=== PATIENT | female | born 1930 | race Caucasian/White ===

== ENCOUNTER 2017-02-25 05:14 | Inpatient (IN) | payer MEDICARE, OTHER ==
--- NOTE | ~2017-02-25 | CN ---
Consultation Report [facility] [address] [facility] [place]. [address] NAME: CON RODRIGUEZ : [birth year] STATUS : ADM IN [facility]#: [id number] AGE: 86 ADM/REG DATE : 02/25/17 MR#: [id number] REPORT SERV DATE: 02/27/17 DICTATED BY: RANDY DE DATE: 02/26/17 REPORT STATUS : Draft TRANSCRIBED BY: MODL DATE: 02/26/17 DATE OF CONSULTATION: REASON FOR CONSULTATION: Right flank pain. HISTORY OF PRESENT ILLNESS: Mrs. Rodriguez is an 86-year-old female, who had acute onset right flank pain that woke her from her sleep 36 hours ago. She has had stones before. She has had nausea and vomiting. No hematuria. She presented to the emergency room and was evaluated. A CT scan was performed showing an obstructing right upper ureteral stone. She is admitted for pain control. She does have sick sinus syndrome and has been followed by Dr. Dunne. PAST MEDICAL HISTORY: Cholecystectomy, subdural hematoma, osteoarthritis, ischemia cardiomyopathy, bradycardia. MEDICATIONS: Vitamin D, diclofenac, Lasix, Elmore, lisinopril, Prilosec, K-Dur, Pravachol, [place] Thyroid, Coumadin that has been held. ALLERGIES: NO KNOWN DRUG ALLERGIES. SOCIAL HISTORY: Lives with her daughter. No dementia. No alcohol, tobacco, or illicit drug use. FAMILY HISTORY: Coronary artery disease. REVIEW OF SYSTEMS: Positive for weakness, nausea, vomiting, and right-sided abdominal pain. She is still hurting and requiring morphine. PHYSICAL EXAMINATION: VITAL SIGNS: Temperature 98.2, pulse 92, respirations 18, blood pressure 143/66, pleasant, somnolent. GENERAL: An 86-year-old, in no acute distress. HEENT: Sclerae anicteric. LUNGS: Clear. HEART: Regular rate and rhythm. CHEST: Clear anteriorly. ABDOMEN: Soft, protuberant. No palpable mass. Mild to moderate right CVA tenderness. No rebound or guarding. BLADDER: Not distended. NEURO: She is sleepy during this interview, but was apparently normally oriented without any dementia or confusion. LABORATORY DATA: Creatinine 1.79. Urinalysis was positive for rare bacteria, but negative for blood, nitrites, or leukocytes. Trace ketones are present. Consultation Report [facility] [address] [place]. [address] NAME: CON RODRIGUEZ : [birth year] STATUS : ADM IN [facility]#: [id number] AGE: 86 ADM/REG DATE : 02/25/17 MR#: [id number] REPORT SERV DATE: 02/27/17 DICTATED BY: RANDY DE DATE: 02/26/17 REPORT STATUS : Draft TRANSCRIBED BY: MODL DATE: 02/26/17 IMAGING: CT of the abdomen from 03/27/2017 shows a 3-4 mm right proximal ureteral stone with hydronephrosis. No other stones visualized. No other acute intraabdominal process. IMPRESSION: Right ureteral stone, symptomatic with pain, nausea, and vomiting. PLAN: I discussed shockwave lithotripsy, ureteroscopy, and trial of passage. She has been on Coumadin, as such is not a candidate for shockwave lithotripsy. She is still symptomatic with pain. I have recommended proceeding with ureteroscopy. Risks of bleeding, infection, and pain for postoperative ureteral stent were discussed. She and her daughter agreed to proceed on 02/27/2017. [facility]/PIPPA Randy De M.D. / [id number] CC: MD Gabriel Otero M.D.
--- NOTE | ~2017-02-25 | HP ---
History And Physical [place] [id number] [place]. [address] NAME: CON RODRIGUEZ : [birth year] STATUS : ADM IN [facility]#: [id number] AGE: 86 ADM/REG DATE : 02/25/17 MR#: [id number] REPORT SERV DATE: 02/25/17 DICTATED BY: DANIA GARCIA DATE: 02/25/17 REPORT STATUS : Draft TRANSCRIBED BY: MODL DATE: 02/25/17 DATE OF ADMISSION: 02/25/2017 ATTENDING PHYSICIAN: Dr. Castano. EXAMINING PHYSICIAN: Dania Garcia M.D. REASON FOR ADMISSION: Right renal stone with abdominal pain. HISTORY OF PRESENT ILLNESS: This is an 86-year-old white female with chronic pain from osteoarthritis followed by Dr. Latonia Casarez. She is on hydrocodone usually at home. She began with abdominal pain in the mid right abdomen to the right, now radiating to the flank since about 2 a.m. She has had some nausea without vomiting. She has had no hematuria, has not collected a urine specimen. She does have restriction on her fluid because her ankles swell. She does have ischemic cardiomyopathy. She was seen previously by Cardiology because she had bradycardia. Bradycardia was associated with pain now with sinus rhythm, occasional PACs with a rate up to 88. She has had a history of deep venous thrombosis. She is on Coumadin at home for this. She has had no hematuria that she knows of. PAST MEDICAL HISTORY: She had a craniotomy because she tore some arteries in her brain on a fall and it sounds like she may have had a subdural hematoma, hospitalized at [place] two years ago. She developed deep venous thrombosis in rehabilitation. After that, had another episode of deep venous thrombosis since that time, has not had inferior vena cava filter in as well as the Coumadin. She is followed by Dr. Gabriel Granger. She has been off her pacemaker in the past because of sick sinus syndrome. She has successfully avoided pacemaker though she is followed by Dr. Louie Dunne. In 1979, she had a laparotomy and part of her liver was removed but she cannot recall if the gallbladder came out or not. MEDICATIONS: Her home medications include the following medications: 1. Vitamin D 3000 units p.o. daily. 2. Cyanocobalamin 1000 mcg sublingually daily. 3. Diclofenac gel 1% 4 times a day p.r.n. for knees. 4. Fluticasone nasal spray each nostril daily. 5. Lasix 20 mg p.o. daily. 6. [place] 5 mg p.o. twice a day scheduled. 7. Lisinopril 5 mg at bedtime. 8. Singulair 1 p.o. daily. 9. [place]-3 fatty acids 1000 mg tablet twice a day. 10.Prilosec 20 mg p.o. b.i.d. 11.K-Dur 20 p.o. b.i.d. 12.Pravachol 20 mg at bedtime. 13.[place] Thyroid 30 mg b.i.d. 14.Magnesium gluconate p.r.n. constipation. 15.Lucentis one dose every 90 days. History And Physical [address] [address] NAME: CON RODRIGUEZ : [birth year] STATUS : ADM IN [facility]#: [id number] AGE: 86 ADM/REG DATE : 02/25/17 MR#: [id number] REPORT SERV DATE: 02/25/17 DICTATED BY: DANIA GARCIA DATE: 02/25/17 REPORT STATUS : Draft TRANSCRIBED BY: PIPPA DATE: 02/25/17 16.Jeaneth cream to buttocks as needed. 17.Warfarin 3 mg q.48 hours alternating with 4.5 q.48 hours. 18.Vitamin C, E, zinc, copper, lutein and Zeaxan capsules one a day. ALLERGIES: ADVERSE REACTIONS OF NONSTEROIDAL ANTI-INFLAMMATORY AGENTS BECAUSE OF PEPTIC ULCER DISEASE IN THE PAST. SHE HAS HAD PEPTIC ULCER DISEASE AND GASTROINTESTINAL PROBLEMS PREVIOUSLY. SOCIAL HISTORY: She grew up in [place], [place], moved here. Lives with her daughter. Does not smoke or drink. She attends the [employer]. Dr. Granger is her family physician. She was last here in 2012. She had an NV in the past, hypertension, reflux/esophagitis, and hypothyroidism. FAMILY HISTORY: There is some heart disease, blood pressure, and longevity runs in the family. REVIEW OF SYSTEMS: Abdominal pain mostly. Constipation always. No chest pain, shortness of breath, fever, chills, night sweats, unilateral weakness, melena, hematemesis, nausea, vomiting, or diarrhea. No known hematuria. No hemoptysis, unilateral weakness, fits, seizures, convulsions, melena, or hematemesis now. The remainder of the review of systems is negative. PHYSICAL EXAMINATION: GENERAL: Elderly white female, in no acute distress. Eyes sunken. Tongue dry. VITAL SIGNS: Blood pressure 140/70 with a heart rate of 88, respiratory rate of 16, afebrile. HEENT: EOMI. Sclerae clear. Conjunctivae pink. The tongue is dry. Pharynx clear. NECK: No bruit without any JVD. CHEST: Clear to A and P. HEART: Regular S1, S2 without murmur, gallop, or click. Occasional PAC. ABDOMEN: Soft, tender right side. Bowel sounds positive. EXTREMITIES: Have 3+ edema. Stasis changes. She has distal pulses palpable at the dorsalis pedis bilaterally. MUSCULOSKELETAL: Knee joints are hypertrophic bilaterally. She has Heberden's and Laura nodes. Interosseous muscle wasting. Her circular sawyer stone is equal and symmetric bilaterally. Coordination appears to be intact. She has no tremor. She appears to be somewhat suppressed mentally and has gotten Dilaudid 0.5 mg IV though she does not recall this. Her speech is cogent and goal directed. History is obtained from she and her daughter. LABORATORY DATA: CT scan of the abdomen shows evidence of a 2-to-3 mm stone on the right side with some hydronephrosis. Her glucose was 114, sodium 143, potassium 3.9, creatinine 1.09, albumin 3.4, and lipase 236. Liver tests were normal. White count 10,800, hemoglobin 14.5, hematocrit 42.9, and platelet count is 185,000. History And Physical [address] [place]. [address] NAME: CON RODRIGUEZ : [birth year] STATUS : ADM IN [facility]#: [id number] AGE: 86 ADM/REG DATE : 02/25/17 MR#: [id number] REPORT SERV DATE: 02/25/17 DICTATED BY: DANIA GARCIA DATE: 02/25/17 REPORT STATUS : Draft TRANSCRIBED BY: PIPPA DATE: 02/25/17 ASSESSMENT: 1. Right renal stone with hydronephrosis 2-to-3 mm, symptoms of movement of the pain likely this is moving. 2. Bradycardia noted on rhythm strip with pain though monitor measuring factitious bradycardia with only measuring half the rate because of low amplitude on the monitor. 3. Ischemic cardiomyopathy. Dr. Irizarry has already seen. 4. Coagulopathy on warfarin. 5. Nausea and vomiting. 6. Chronic pain, low back pain and knee pain, on chronic Dilaudid. 7. History of small-bowel obstruction. Hospitalized at [facility] in the past. 8. History of peptic ulcer disease. 9. History of pneumonia hospitalized here remotely. 10.History of Clostridium difficile colitis while she was at [facility] and she has had thorough rehabilitation twice. 11.Atrial fibrillation alternating with sinus rhythm with sinus bradycardia, likely sick sinus syndrome. She has been off her pacemaker in the past, but appears to be recovering from the bradycardia after the pain has been relieved. PLAN: We are going to admit the patient to the hospital. She may have passed a stone before night and could be discharged; however, she has been by Cardiology and has had the following ordered: Echocardiogram today. EP studies. TSH and free T4. PLAN: Gentle IV fluid hydration with the Lasix give it twice a day. Try to increase urine flow and see if this aids in the passage of the renal stone. DB/MODL Dania Garcia M.D. / [id number] CC: MD Gabriel Otero M.D. William Warren, M.D. Sigrid Watkins M.D. Latonia Casarez M.D.
--- NOTE | ~2017-02-25 | IDS ---
Interim Discharge Summary [facility] [address] [place]. [address] NAME: CON RODRIGUEZ : [birth year] STATUS : ADM IN [facility]#: [id number] AGE: 86 ADM/REG DATE : 02/25/17 MR#: [id number] REPORT SERV DATE: 03/10/17 DICTATED BY: JEISON AGUILAR DATE: 03/10/17 REPORT STATUS : Draft TRANSCRIBED BY: MODL DATE: 03/10/17 ADMISSION DATE: 02/25/2017 DISCHARGE DATE: Date of service provided from 03/04/2017 to 03/10/2017. Please refer to the previous discharge summary dictated by Dr. Castano on 03/03/2017. Please also refer to the history of present illness dictated by Dr. Mayorga on 02/25/2017. Physicians who saw the patient during this hospitalization, Dr. Mayorga, Dr. Castano, and nv. CONSULTANTS ON THE CASE: 1. Urologist, Dr. Casarez. 2. Dredge Lever Operator, Dr. Almanzar and Dr. Irizarry. CURRENT MEDICAL PROBLEMS: Right-sided perinephric abscess/urinoma status post CT-guided drainage on 02/27/2017 status post pigtail catheter placement by radiologist, Dr. Westbrook. 1. Status post right ureteral stent placement status post stone extraction on 02/28/[address] Casarez. 2. Recent paroxysmal atrial fibrillation, now in sinus bradycardia, beta-tracy was discontinued by border guard by border guard, Dr. Irizarry. 3. History of ischemic cardiomyopathy with ejection fraction 40% compensated. 4. Persistent leukocytosis this week, improved after pigtail catheter placement and the right-sided perinephric abscess drainage. 5. Severe weakness. Continue physical therapy. 6. Coumadin anticoagulation restarted per Dr. Casarez's recommendation today. 7. Sinus bradycardia. Dredge Lever Operator signed off, they will decide if the patient needs pacemaker placement later. 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 Pre and postcontrast imaging was used for this examination. There is cardiomegaly. There is a large hiatal hernia. There is evidence for prior stomach surgery. Vena cava filter is also identified and appears in good position. For the week I saw the patient, the patient was progressively increasing leukocytosis and it was staying persistently high despite of being on intravenous Rocephin. This was very concerning to me. So, I reconsulted Dr. Casarez, urologist. There was a concern of perinephric abscess. So, Dr. Casarez did an imaging study on this patient. CT scan, see above, and it showed questionable perinephric abscess. The patient had a CT-guided drainage and pigtail catheter placement and it yielded purulent bloody fluid. Pigtail catheter is still in place and Dr. Casarez and my colleague Dr. Castano will follow up on drainage fluid cultures for further decision of antibiotic choice. Decision of antibiotic duration will be per urologist Dr. Casarez. She is still on antibiotic as well as anticoagulation is restarted per recommendation of Dr. Casarez. Also very important to mention that the patient's beta- tracy has been discontinued because she had bradycardia on the beta-tracy, so she should not be restarted on beta-tracy. She should only be on Cordarone 200 mg daily. She is Interim Discharge Summary [address] [address] NAME: CON RODRIGUEZ : [birth year] STATUS : ADM IN [facility]#: [id number] AGE: 86 ADM/REG DATE : 02/25/17 MR#: [id number] REPORT SERV DATE: 03/10/17 DICTATED BY: JEISON AGUILAR DATE: 03/10/17 REPORT STATUS : Draft TRANSCRIBED BY: MODL DATE: 03/10/17 currently also on aspirin 81 mg daily. She is on Rocephin 2 g IV q.24 hours, magnesium oxide 200 daily, Singulair 10 mg a day, Movantik 25 daily, Protonix 40 mg daily, Nystatin p.o. four times a day, Pravachol 20 mg daily. She is on thyroid replacement 30 twice a day. Family also was updated. The patient will need to have placement once the cultures are back and once Dr. Casarez and Dr. Castano will recommend. My partner Dr. Castano will see the patient starting tomorrow morning. He needs to follow up on abscess cultures from the pigtail catheter as well as the decision of antibiotic choice as well as no beta-blockers anymore. MG/MODL Jeison Aguilar M.D. / [id number] CC: Zhao Florence M.D. John C House, M.D.
--- NOTE | ~2017-02-25 | IDS ---
Interim Discharge Summary [facility] [address] [place]. [address] NAME: CON RODRIGUEZ : [birth year] STATUS : ADM IN [facility]#: [id number] AGE: 86 ADM/REG DATE : 02/25/17 MR#: [id number] REPORT SERV DATE: 03/04/17 DICTATED BY: NISH DEE DATE: 03/04/17 REPORT STATUS : Draft TRANSCRIBED BY: MODBreezy DATE: 03/04/17 ADMISSION DATE: 02/25/2017 DISCHARGE DATE: INTERIM DIAGNOSES: 1. Renal stone with hydronephrosis, pyelonephritis present on arrival. 2. Vasovagal bradycardia with questionable sick sinus. 3. Atrial fibrillation, prominent postop. 4. Ischemic cardiomyopathy present on arrival. 5. Intractable pain, currently resolved after stent. 6. Debility. 7. Leukocytosis. 8. Small bowel obstruction history secondary to narcotic history. PERTINENT LABS AND IMAGING: Proteus urine culture, cefuroxime sensitive, cefazolin resistant, Levaquin resistant, and Bactrim resistant. Brain without contrast, no evidence of acute pathology, prior left frontal craniotomy, cerebral volume loss. BNP 1026.7 on 02/25/[address] of [address] of the abdomen and pelvis, 2 x 3 mm stone proximal right ureter with moderate severity hydronephrosis. PROCEDURES PERFORMED: Cystoscopy with right retrograde pyelogram, right ureteroscopy with stone extraction, right ureteral stent placement. HOSPITAL COURSE: Please see H and P for complete details. HISTORY OF PRESENT ILLNESS: Briefly, Ms. Rodriguez is an 86-year-old female who presents with left quadrant pain. Additionally found to be in occasional sinus bradycardia, requiring Cardiology and EP evaluation though secondary to vasovagal symptoms from renal stone. The patient was conservatively initially tried for first 24 hours for stone passage and pain control. However, as it became more prevalent that the patient would not be able to pass stone, the patient was becoming more symptomatic. Urology was consulted and evaluated for stone extraction. Once the patient is optimized from Cardiology standpoint, the patient underwent stone extraction and pyelogram as above. Symptomatically also immediately feeling improvement with pain and discomfort; however, the patient did have resultant postprocedure AFib with history of cardiomyopathy. The patient has had history of bradycardia per EP studies with beta blockade and amiodarone was chosen. The patient has been on chronically warfarin and this was changed from amiodarone drip to p.o. with fair response. Currently, dispose pending resolution of leukocytosis and strength improvement. Chest x-ray has currently been ordered as the patient still has persistent leukocytosis and ordering of blood culture. The patient has had PT evaluation with recommendation for jail facility when medically ready. DDN/PIPPA Interim Discharge Summary [facility] [facility] [id number] [place]. [address] NAME: CON RODRIGUEZ : [birth year] STATUS : ADM IN [facility]#: [id number] AGE: 86 ADM/REG DATE : 02/25/17 MR#: [id number] REPORT SERV DATE: 03/04/17 DICTATED BY: NISH DEE DATE: 03/04/17 REPORT STATUS : Draft TRANSCRIBED BY: PIPPA DATE: 03/04/17 Nish Dee MD / [id number] CC: MD Gabriel Otero M.D.
--- NOTE | ~2017-02-25 | OP ---
Record Of Operation [facility] [address] [place]. [address] NAME: CON RODRIGUEZ : [birth year] STATUS : ADM IN [facility]#: [id number] AGE: 86 ADM/REG DATE : 02/25/17 MR#: [id number] REPORT SERV DATE: 02/28/17 DICTATED BY: RANDY DE DATE: 02/28/17 REPORT STATUS : Draft TRANSCRIBED BY: MODL DATE: 02/28/17 DATE OF PROCEDURE: 02/28/2017 PREOPERATIVE DIAGNOSIS: Right ureteral stone. POSTOPERATIVE DIAGNOSES: 1. Right ureteral stone. 2. Right pyonephrosis. ANESTHESIA: General. PROCEDURE PERFORMED: 1. Cystoscopy with right retrograde pyelogram. 2. Right ureteroscopy with stone extraction. 3. Right ureteral stent placement. INDICATION: Ms. Rodriguez is an 86-year-old, admitted three days ago through the emergency room with acute-onset intractable right renal colic. She has not had fever. There has been persistent pain, nausea, and vomiting. CT scan showed a 4 mm right UPJ stone. Urine was not infected. FINDINGS: Right pyonephrosis. The stone at the right UPJ was very soft and was fragmented and evacuated immediately with suction and irrigation through the ureteroscope. TECHNIQUE: Levaquin was preoperatively. Ms. Rodriguez was brought to the operating room. General anesthesia was administered. The introitus was prepped and draped in the lithotomy position in a sterile fashion. Rigid cystoscopy was performed. The urethra was normal. Bladder showed a grade 2-3 cystocele. There was sediment at the bladder base. Right ureter was cannulated. Retrograde pyelogram was performed. There was no hydroureter. There was a transition point with a larger than expected filling defect at the UPJ/renal pelvis. A wire was passed up to the kidney. The cystoscope was removed. I passed a 11.5-Estonian ureteral access sheath up to the right upper ureter. Flexible ureteroscope was advanced. The stone had been impacted at the UPJ on the CT. At this site, there was erythema, edema, and narrowing. Stone was not visualized here. In the renal pelvis, there was copious sediment-laden/purulent urine. I evacuated 20 mL of purulent urine and a culture was sent. I irrigated the renal pelvis until clear. This was approximately 100 mL of irrigation through the scope. At this point, no stone was visualized. I checked the irrigation basin and there were tiny fragments of stone within the irrigated fluid. I inspected the renal pelvis and all calices as well as the proximal, mid, and distal ureter. No other stone or stone fragments were seen. I repeated retrograde pyelogram. Hydronephrosis persisted, but the filling defect was gone. I placed a wire up to the kidney and a 28 cm 6-Estonian right ureter stent was placed. The dangling string was removed. Coil was confirmed fluoroscopically in the renal pelvis and cystoscopically in the bladder. The bladder was drained. The cystoscope was removed. Record Of Operation [place] [id number] [facility] [place]. [address] NAME: CON RODRIGUEZ : [birth year] STATUS : ADM IN [facility]#: [id number] AGE: 86 ADM/REG DATE : 02/25/17 MR#: [id number] REPORT SERV DATE: 02/28/17 DICTATED BY: RANDY DE DATE: 02/28/17 REPORT STATUS : Draft TRANSCRIBED BY: PIPPA DATE: 02/28/17 She will follow up. We will await culture results prior to discharging her from the hospital. I will keep her on Levaquin empirically pending culture results. Her stent can be removed in 14 days in the office. No KUB will be necessary prior to stent removal. [facility]/PIPPA Randy De M.D. / [id number] CC: MD Gabriel Otero M.D.
--- NOTE | ~2017-02-25 | DS ---
Discharge Summary [facility] [address] [place]. [address] NAME: CON RODRIGUEZ : [birth year] STATUS : DIS IN PAT#: [id number] AGE: 86 ADM/REG DATE : 02/25/17 MR#: [id number] REPORT SERV DATE: 03/13/17 DICTATED BY: NISH DEE DATE: 03/12/17 REPORT STATUS : Draft TRANSCRIBED BY: MODL DATE: 03/12/17 ADMISSION DATE: 02/25/2017 DISCHARGE DATE: 03/11/2017 DISCHARGE DIAGNOSES: 1. Renal stone with hydronephrosis, pyelonephritis present on arrival. 2. Vasovagal bradycardia on admission with questionable sick sinus, thought secondary to be vasovagal after EP and Cardiology review. 3. Atrial fibrillation, postop. 4. Ischemic cardiomyopathy, present on arrival. 5. Intractable pain, resolving after stent. 6. Debility. 7. Leukocytosis. 8. Small-bowel obstruction history secondary to narcotic use with close monitoring of bowel regimen while inpatient. 9. Severe weakness. 10.Deconditioning. 11.Anticoagulation. 12.Perinephric abscess. CONSULTATIONS: 1. Cardiology. 2. Urology, Dr. Casarez. 3. Electrophysiology, Dr. Almanzar. 4. Cardiology, Dr. Irizarry. 5. Interventional Radiology for CT-guided pigtail catheter, remained in place, to be reassessed in one week by Dr. Casarez in clinic. DIAGNOSTIC DATA: Final cultures at time of discharge: Negative. Prior urine cultures: Proteus mirabilis. HOSPITAL COURSE: Please see H and P for complete details. HISTORY OF PRESENT ILLNESS: Briefly, Ms. Rodriguez is a pleasant 86-year-old female with past medical history of ischemic cardiomyopathy who presented with intractable pain, noted to have vasovagal bradycardia in the 30s that resolved after pain control, noted to have renal stone, who has tried conservative therapy for the first 12 to 24 hours; however, was noted to have worsening of symptoms with CT noting for pyelonephritis. The patient was evaluated by surgery, required stent placement and extraction of stone. The patient did feel symptomatically much better after having removal of the stone, but was noted to be in atrial fibrillation postprocedure. Due to the patient's intolerance of beta blockers and CCBs per EP evaluation due to bradycardia history, the patient was started on amiodarone with good results. The patient did have persistent leukocytosis and further workup prompted repeat CT which also noted a perinephric abscess. The patient did have drain placement by CT guidance, completed Rocephin 2 g due to perinephritis. Repeat cultures were negative from site. The patient had improvement in leukocytosis and creatinine remained stable over Discharge Summary [facility] [address] [place] [place]. [address] NAME: CON RODRIGUEZ : [birth year] STATUS : DIS IN PAT#: [id number] AGE: 86 ADM/REG DATE : 02/25/17 MR#: [id number] REPORT SERV DATE: 03/13/17 DICTATED BY: NISH DEE DATE: 03/12/17 REPORT STATUS : Draft TRANSCRIBED BY: PIPPA DATE: 03/12/17 72 hours. The patient was notably debilitated from baseline after having acute events and was recommended Nursing Home Facility at discharge. DISCHARGE MEDICATIONS: Aspirin 81 mg one tab p.o. daily; Voltaren gel 1% application topical 4 times a day; amiodarone 200 mg one tab p.o. daily; Jeaneth to buttocks; vitamin B12, 1000 mcg p.o. every morning; vitamin D3, 1000 units p.o. daily; Flonase 2 sprays nasal; Mag oxide 200 mg one tablet p.o. daily; Singulair 10 mg one tab p.o. daily; nystatin oral suspension 5 mL p.o. liquid; fish oil 1000 mg p.o. b.i.d.; Protonix 40 mg one tab p.o. before supper; Prilosec 20 mg one tab p.o. b.i.d.; pravastatin 20 mg one tab p.o. at bedtime; Azo t.i.d.; [place] 30 mg one tab p.o. b.i.d.; warfarin 3 mg q.48 hours with alternation of 4.5 q.48 hours, follow up INR in three days; Tylenol as needed; Dulcolax; Colace for bowel constipation as needed; [place] 5/325 one tab p.o. q.4 to 6 hours as needed for breakthrough pain; Voltaren gel [id number] as needed; Mag citrate b.i.d. as needed; Zofran ODT as needed for nausea; Senokot 2 tablets at bedtime for constipation. Additionally, cefuroxime 500 mg one tab p.o. b.i.d. x7 additional days. Discharge planning, med reconciliation, education with the patient and family took greater than 30 minutes. DICTATED BY: MD GAB Otero/MODL Nish Dee MD / [id number]
--- NOTE | ~2017-02-25 | CN ---
Consultation Report [facility] [address] [place]. [address] NAME: CON RODRIGUEZ : [birth year] STATUS : ADM IN PAT#: [id number] AGE: 86 ADM/REG DATE : 02/25/17 MR#: [id number] REPORT SERV DATE: 02/25/17 DICTATED BY: UMER IRENE DATE: 02/25/17 REPORT STATUS : Draft TRANSCRIBED BY: MODBreezy DATE: 02/25/17 CONSULTATION DATE OF CONSULTATION: 02/25/2017 REASON FOR CONSULTATION: Possible pacemaker implantation. PRIMARY OPERATIONS TRAINER: Louie Dunne M.D. HISTORY OF PRESENT ILLNESS: Ms Rodriguez is a very pleasant 86-year-old female with a history of ischemic cardiomyopathy (LVEF of 40%, anteroapical hypocontractility), chronic DVT status post IVC filter and on Coumadin, coronary artery disease status post PCI of the LAD (2008), anteroapical NV, and history of resting bradycardia (asymptomatic), who presents to [facility] with symptoms of right upper quadrant abdominal pain that started at 0100 hours this morning. She states that she had been in her usual state of health about one week ago, and couple of days later had unsteadiness with ambulating. She did not have any tripping or provoking factors mechanically; however, felt quite unsteady while walking and ended up falling. Per her daughter and herself, she did not frankly lose consciousness. Her gait instability and unsteadiness, which is generally nonspecified, occurs on an infrequent basis, but she has had multiple falls over the past several months. She has been evaluated for pacemaker in the remote past approximately six years ago; however, at that time, she had not been falling at all. She otherwise denies having any tammi chest pains, pressures, fevers, chills, or palpitations. Her primary symptoms include abdominal discomfort on her right side as well as unsteadiness and nausea. ALLERGIES: NONE. FAMILY HISTORY: Noncontributory for premature cardiovascular disease. SOCIAL HISTORY: The patient lives at home with family (daughter). She functions generally independently with regard to ADLs. She does require assistance otherwise. She denies drinking alcohol, smoking, or doing drugs. REVIEW OF SYSTEMS: As above, all other systems otherwise negative. HOME MEDICATIONS: 1. Vitamin D. 2. Vitamin B12. 3. Voltaren. 4. Flonase. 5. Lasix. 6. [place]. 7. Lisinopril. 8. Singulair. Consultation Report [facility] [address] [place]. [address] NAME: CON RODRIGUEZ : [birth year] STATUS : ADM IN PAT#: [id number] AGE: 86 ADM/REG DATE : 02/25/17 MR#: [id number] REPORT SERV DATE: 02/25/17 DICTATED BY: UMER IRENE DATE: 02/25/17 REPORT STATUS : Draft TRANSCRIBED BY: PPIPA DATE: 02/25/17 9. Fish oil. 10.Prilosec. 11.Klor-Con. 12.Pravachol. 13.[place]. 14.Magnesium. 15.Coumadin. PHYSICAL EXAMINATION: VITAL SIGNS: BP 184/76; temperature 97, oxygen saturation 94%, and heart rate variable on the telemetry review from 80s down to 20s/30s. GENERAL: Age appropriate, conversant, well-developed, well-nourished. NEURO: Awake, alert and oriented x3; no focal deficits, appropriate mood. HEENT: Moist mucous membranes, anicteric sclerae, no nasal discharge. NECK: No JVD, no carotid bruit. LUNGS: Clear to auscultation bilaterally, no wheezes, rales or rhonchi. CARDIAC: Occasional irregularity; however, generally regular, normal S1, S2. No murmurs, rubs, or gallops. ABD: Soft, non-tender, non-distended, no rebound or guarding. EXT: No pitting edema, normal distal pulses. SKIN: Warm, dry and intact; no rash. PERTINENT TEST FINDINGS: Telemetry with sinus bradycardia down to the 20 on occasion, otherwise white blood cell count 10.8, hemoglobin 14.5. Creatinine 1.1. LFTs are normal. Glucose 114. EKG with sinus bradycardia with a rate of 44 beats per minute. Lateral and anterior T-wave inversions. IMPRESSION AND PLAN: Ms Meza is a pleasant 86-year-old female with history of coronary artery disease status post PCI, ischemic cardiomyopathy (EF of 40%), and chronic resting bradycardia that was previously asymptomatic, who now presents with symptoms of right upper quadrant abdominal discomfort, nausea, as well as marked sinus bradycardia/sick sinus syndrome with falls. Most recently, she fell about one week ago, this may very well has been related to her bradycardic episodes. Accordingly, I recommend evaluation by Electrophysiology for pacemaker implantation. Otherwise avoid maira blocking agents, including beta-blockers. She is compensated from ischemic cardiomyopathy perspective as well as from a coronary artery disease perspective, without any anginal equivalent or volume overload on my clinical exam. Finally, it will be helpful to check an echocardiogram to get a reassessment of her ejection fraction which was last 40% prior two years ago. VR/PIPPA Consultation Report [address] [place]. [address] NAME: CON RODRIGUEZ : [birth year] STATUS : ADM IN [facility]#: [id number] AGE: 86 ADM/REG DATE : 02/25/17 MR#: [id number] REPORT SERV DATE: 02/25/17 DICTATED BY: UMER IRENE DATE: 02/25/17 REPORT STATUS : Draft TRANSCRIBED BY: PIPPA DATE: 02/25/17 Umer Irene MD / [id number] CC: MD Gabriel Otero M.D.
--- NOTE | ~2017-02-25 | CN ---
Consultation Report [facility] [address] [place]. [address] NAME: CON RODRIGUEZ : [birth year] STATUS : ADM IN PAT#: [id number] AGE: 86 ADM/REG DATE : 02/25/17 MR#: [id number] REPORT SERV DATE: 02/25/17 DICTATED BY: DANIA ALMANZAR DATE: 02/25/17 REPORT STATUS : Draft TRANSCRIBED BY: MODL DATE: 02/25/17 EP CONSULTATION DATE OF CONSULTATION: INDICATION: Bradycardia. HISTORY: The patient is an 86-year-old white female, who is usually cared for by Dr. Dunne. She has a history of nonischemic cardiomyopathy with an EF of 40% and intermittent bradycardia. She does not use beta-blockers because of this tendency for bradycardia. She has a history of falls and unsteadiness, but no history of overt syncope. According to her daughter and son-in-law, she awakened them at 3 this morning with onset of right-sided flank pain. This had started a couple of hours earlier. She also had nausea and vomiting. She was taken to the emergency room. CT scan showed a 2 x 3 mm stone in the proximal right ureter with moderate hydronephrosis. During the course of evaluation in the emergency room, she was found to have periods of bradycardia with heart rates in the 30 beat per minute range and less. These were intermittent episodes. CURRENT HOME MEDICATIONS: Cholecalciferol 1000 per day, cyanocobalamin 1000 per day, diclofenac gel four times p.r.n., fluticasone nasal spray 50 b.i.d., furosemide 20 a day, hydrocodone/APAP 5/325 q.i.d. p.r.n., lisinopril 5 at bedtime, montelukast 10 per day, [place] 3 fatty acids daily, omeprazole 20 b.i.d., potassium 20 b.i.d., pravastatin 20 at bedtime, Thyroid [place] 30 b.i.d., magnesium gluconate one tablet daily, Lucentis ophthalmologic injection per Dr. Murillo and cream applied to buttocks, vitamin C, PreserVision AREDS two softgel capsules daily, warfarin as directed. ALLERGIES OR INTOLERANCE: NSAIDs (peptic ulcer disease). SOCIAL HISTORY: . Lives with daughter and son-in-law. Negative tobacco or alcohol use. FAMILY HISTORY: Negative for coronary artery disease at a young age. PAST MEDICAL HISTORY/REVIEW OF SYSTEMS: She has had previous DVTs and an IVC filter. She has a past intracranial hemorrhage following a fall requiring subdural evacuation by Neurosurgery. She has a history of anterior wall NE in 2008 ([place]). She has been evaluated for chest pain as recently as 2012 with an MPI scan. EF at that time was 35%. She has been on medical therapy since that time. She has a history of hyperlipidemia, hypothyroidism, osteoporosis, GERD, and osteoarthritis. She had a gastric ulcer in April 2013 associated with emesis. She also has a large hiatal hernia. PHYSICAL EXAMINATION: GENERAL: An 86-year-old white female, appears frail. Consultation Report [facility] [id number] [facility] [place]. [address] NAME: CON RODRIGUEZ : [birth year] STATUS : ADM IN [facility]#: [id number] AGE: 86 ADM/REG DATE : 02/25/17 MR#: [id number] REPORT SERV DATE: 02/25/17 DICTATED BY: DANIA ALMANZAR DATE: 02/25/17 REPORT STATUS : Draft TRANSCRIBED BY: PIPPA DATE: 02/25/17 VITAL SIGNS: Blood pressure presently on admission 184/76, pulse 70 and regular, respirations 20. SKIN: No xanthelasmas. HEENT: She is normocephalic. There is no pallor. Sclerae white. JVD is not elevated. CHEST: No crackles. CARDIAC: S1 normal, S2 physiologic. There are no gallops or murmurs. ABDOMEN: With some right upper quadrant tenderness. Bowel sounds are diminished. EXTREMITIES: Without edema. No clubbing. NEUROLOGIC: No focal deficits. LABORATORY DATA: BUN 25, creatinine 1.09. White count 10.8, hemoglobin 14.5. Baseline ECG shows sinus bradycardia, short left axis deviation, and lateral inverted T-waves and T-wave flattening. No acute repolarization changes present. IMPRESSION: Bradycardia, likely vagally mediated secondary to hydronephrosis and ureteral spasm. Before considering any pacing support, it would be ideal to allow her stone to pass and get a better sense of her function and rhythm in the nonacute setting. If she tends to have more bradycardia, atropine would be effective in decreasing the tendency for bradycardia, although this may cause other discomfort. No acute intervention required at present. FLOYD/PIPPA Dania Almanzar M.D. / [id number] CC: MD Gabriel Otero M.D. [facility]
[~2017-02-25 05:14] MED LIST: ANTIFUNGAL; ARMOUR THYRO30 MG PO; ASAB PO; ASTAXANTHIN OR; AT25 PO; ATEN25 PO; BISR PR; CALTRA600D PO; CLARIT10 PO; CO Q-10100 MG PO; COUMADIN3 MG; COUMADIN3 MG PO; DETROLLA4 PO; DSS PO; DYAZIDE1 CAP PO; ENDODAN PO; ESTER C OR; ESTER-C PO; FISH OIL300 MG PO; FISH-EPA1000 MG PO; FLONASE NAS; FORTEO SC; GLUCOSAMINE SULFATE OR; HYALURONIC ACID OR; KLOR-CON M2020 MEQ PO; KLOR-CON20 MEQ PO; LORTAB 5 PO; MAGNESIUM CITRATE; MAGNESIUM CITRATE OR; MAGOX4 PO; MAXZIDE PO; METANX PO; NAFTIN TOP; NASONEX INH; NASONEX NAS; NEXIUM40 PO; NITROSTAT0.4 MG SL; NORCO1 TA1 PO; PERIDEX PO; PRAVAC PO; PRILO PO; PROLIA60 MG/1 ML SC; PROTOPIC0.1 % EX; REST15 PO; SINGULAIR1 PO; SPIRULINA500 MG; SPIRULINA500 MG OR; STEROID CREAM; SUCR PO; SYNTHROID137 MCG PO; SYNTHROID300 MCG PO; UBIQUINOL OR; VANCOMYCIN; VICODINTAB PO; VITAMIN B-121000 MC1 SL; VITAMIN D31000 UNIT PO; VITAMIN K IM; ZOCOR40 PO; ZOFRAN4; [UNRECOGNIZED DRUG - OTHER]; [UNRECOGNIZED DRUG - OTHER]; [UNRECOGNIZED DRUG - OTHER] T
[2017-02-25 05:49] LABS: BASOPHILS 0.1 %; BASOPHILS ABSOLUTE 0.01 10/3/uL (0.0-0.16); EOSINOPHILS 0.9 %; HEMATOCRIT 42.9 % (36.0-48.0); HEMOGLOBIN 14.5 g/dL (12.0-16.0); IMMATURE GRANULOCYTES 0.3 %; IMMATURE GRANULOCYTES ABSOLUTE 0.03 10/3/uL (0.0-0.11); LYMPHOCYTES 9.5 %; LYMPHOCYTES ABSOLUTE 1.03 10/3/uL (0.67-4.30); MEAN CORPUS HGB CONC 33.8 g/dL (32.0-36.0); MEAN CORPUSCULAR HEMOGLOB 28.9 pg (26.0-34.0); MEAN CORPUSCULAR VOLUME 85.5 fL (80-100); MEAN PLATELET VOLUME 12.1 fL (9.2-13.0); MONOCYTES 6.7 %; MONOCYTES ABSOLUTE 0.73 10/3/uL (0.21-1.20); NEUTROPHILS 82.5 %; NEUTROPHILS ABSOLUTE 8.94 10/3/uL (2.02-8.40); PLATELET COUNT 185 10/3/uL (150-400); RBC DISTRIBUTION WIDTH 15.5 % (12.0-16.0); RED CELL COUNT 5.02 10/6/uL (4.0-5.6)
[2017-02-25 05:50] LABS: ER CBC TAT 0 Hrs 11 MinsNP; MANUAL DIFF NO %; WHITE BLOOD CELLS 10.8 10/3/uL (4.5-10.5)
[2017-02-25 06:04] LABS: A/G RATIO 0.9 (0.7-1.9); ALBUMIN 3.4 G/DL (3.5-5.0); BUN (BLOOD UREA NITROGEN) 25 MG/DL (6-23); CALCIUM, SERUM 9.2 MG/DL (8.5-10.4); CHLORIDE, SERUM 109 MMOL/L (96-112); CO2 (CARBON DIOXIDE) 26 MMOL/L (24-34); CREATININE 1.09 MG/DL (0.55-1.02); GFR AFRICAN AMERICAN 53 ML/MIN (>=60); GFR NON AFRICAN AMERICAN 46 ML/MIN (>=60); GLOBULIN 3.9 G/DL (2.5-4.1); GLUCOSE, SERUM 114 MG/DL (60-99); POTASSIUM, SERUM 3.9 MMOL/L (3.5-5.3); SGOT(AST) 18 U/L (5-40); SGPT(ALT) 17 U/L (5-65); SODIUM, SERUM 143 MMOL/L (135-148); TOTAL BILIRUBIN 0.5 MG/DL (0-1.2); TOTAL PROTEIN 7.3 G/DL (6.0-8.5)
[2017-02-25 06:05] LABS: ALKALINE PHOSPHATASE 68 U/L (45-117)
[2017-02-25] MEDS ORDERED: SINGULAIR1 PO (07:01)
[2017-02-25] MEDS ORDERED: MAXZIDE (07:01)
[2017-02-25] MEDS ORDERED: PRIN5 PO (07:01)
[2017-02-25] MEDS ORDERED: VITAMIN D31000 UNIT PO (07:02)
[2017-02-25] MEDS ORDERED: VITAMIN B-121000 MC1 PO (07:03)
[2017-02-25] MEDS ORDERED: MAGNESIUM GLUCONATE PO (07:04)
[2017-02-25] MEDS ORDERED: PRESERVISION A1 EAC1 PO (07:05)
[2017-02-25] MEDS ORDERED: MAG CITRATE (07:05)
[2017-02-25] MEDS ORDERED: MAGNESIUM CITRATE PO (07:22)
[2017-02-25] MEDS ORDERED: L20 PO (07:27)
[2017-02-25] MEDS ORDERED: COUMADIN3 MG PO ×2 (07:28→07:29)
[2017-02-25] MEDS ORDERED: FLONASE NAS (07:30)
[2017-02-25] MEDS ORDERED: VOLTAREN1 % TOP (07:32)
[2017-02-25] MEDS ORDERED: [UNRECOGNIZED DRUG - OTHER] OPH (07:34)
[2017-02-25] MEDS ORDERED: [UNRECOGNIZED DRUG - OTHER] TOP (07:36)
[2017-02-25 09:40] LABS: INTERNATIONAL NORMAL RATI 1.4 UNITS (-)
[2017-02-25 09:41] LABS: PROTIME (NOT ORD) 17.1 SEC (12.0-14.5)
[2017-02-25 09:55] LABS: ASCORBIC ACID (UR NOT ORDER) NEG (NEG); BILIRUBIN, URINE NEGATIVE (NEG); ER URINALYSIS TAT 0 Hrs 08 Mins; KETONE, URINE TRACE MG/DL (NEG); LEUKOCYTE ESTERASE(NOT OR NEG (NEG); NITRITE (URINE) NEG (NEG); WBC (NOT ORDERED) (RFLEX) 2 (0-5)
[2017-02-25 18:03] LABS: TROPONIN I 0.08 NG/ML (<0.05)
[2017-02-25 20:41] LABS: BUN (BLOOD UREA NITROGEN) 25 MG/DL (6-23); CALCIUM, SERUM 8.6 MG/DL (8.5-10.4); GFR AFRICAN AMERICAN 36 ML/MIN (>=60); GFR NON AFRICAN AMERICAN 31 ML/MIN (>=60)
[2017-02-25 20:44] LABS: CO2 (CARBON DIOXIDE) 21 MMOL/L (24-34); GLUCOSE, SERUM 205 MG/DL (60-99)
[2017-02-25 20:46] LABS: CHLORIDE, SERUM 107 MMOL/L (96-112); POTASSIUM, SERUM 3.5 MMOL/L (3.5-5.3)
[2017-02-25 20:47] LABS: SODIUM, SERUM 134 MMOL/L (135-148)
[2017-02-26 06:02] LABS: INTERNATIONAL NORMAL RATI 1.6 UNITS (-); PROTIME (NOT ORD) 19.3 SEC (12.0-14.5)
[2017-02-26 06:12] LABS: CALCIUM, SERUM 8.3 MG/DL (8.5-10.4); CHLORIDE, SERUM 107 MMOL/L (96-112); CO2 (CARBON DIOXIDE) 23 MMOL/L (24-34); CREATININE 1.79 MG/DL (0.55-1.02); GFR AFRICAN AMERICAN 29 ML/MIN (>=60); GFR NON AFRICAN AMERICAN 25 ML/MIN (>=60); POTASSIUM, SERUM 3.9 MMOL/L (3.5-5.3); SODIUM, SERUM 140 MMOL/L (135-148)
[2017-02-26 06:14] LABS: BUN (BLOOD UREA NITROGEN) 32 MG/DL (6-23); GLUCOSE, SERUM 152 MG/DL (60-99)
[2017-02-27 06:12] LABS: BASOPHILS 0.1 %; BASOPHILS ABSOLUTE 0.01 10/3/uL (0.0-0.16); EOSINOPHILS 0 %; HEMATOCRIT 41.9 % (36.0-48.0); HEMOGLOBIN 14.2 g/dL (12.0-16.0); IMMATURE GRANULOCYTES 0.3 %; IMMATURE GRANULOCYTES ABSOLUTE 0.04 10/3/uL (0.0-0.11); LYMPHOCYTES 3.8 %; LYMPHOCYTES ABSOLUTE 0.46 10/3/uL (0.67-4.30); MEAN CORPUS HGB CONC 33.9 g/dL (32.0-36.0); MEAN CORPUSCULAR HEMOGLOB 28.5 pg (26.0-34.0); MEAN PLATELET VOLUME 11.8 fL (9.2-13.0); MONOCYTES 4.1 %; MONOCYTES ABSOLUTE 0.49 10/3/uL (0.21-1.20); NEUTROPHILS 91.7 %; NEUTROPHILS ABSOLUTE 11.03 10/3/uL (2.02-8.40); RBC DISTRIBUTION WIDTH 15.6 % (12.0-16.0); RED CELL COUNT 4.99 10/6/uL (4.0-5.6)
[2017-02-27 06:14] LABS: INTERNATIONAL NORMAL RATI 1.4 UNITS (-); MANUAL DIFF NO %; PLATELET COUNT 116 10/3/uL (150-400); PROTIME (NOT ORD) 17.2 SEC (12.0-14.5)
[2017-02-27 06:22] LABS: CALCIUM, SERUM 8.4 MG/DL (8.5-10.4); CHLORIDE, SERUM 110 MMOL/L (96-112); CO2 (CARBON DIOXIDE) 24 MMOL/L (24-34); CREATININE 1.49 MG/DL (0.55-1.02); GFR AFRICAN AMERICAN 36 ML/MIN (>=60); GFR NON AFRICAN AMERICAN 31 ML/MIN (>=60); GLUCOSE, SERUM 125 MG/DL (60-99); POTASSIUM, SERUM 4.5 MMOL/L (3.5-5.3); SODIUM, SERUM 141 MMOL/L (135-148)
[2017-02-27 06:23] LABS: BUN (BLOOD UREA NITROGEN) 36 MG/DL (6-23)
[2017-02-28 05:59] LABS: HEMATOCRIT 43.4 % (36.0-48.0); HEMOGLOBIN 14.9 g/dL (12.0-16.0); MEAN CORPUS HGB CONC 34.3 g/dL (32.0-36.0); MEAN CORPUSCULAR HEMOGLOB 29.1 pg (26.0-34.0); MEAN CORPUSCULAR VOLUME 84.8 fL (80-100); PLATELET COUNT 126 10/3/uL (150-400); RBC DISTRIBUTION WIDTH 15.7 % (12.0-16.0); RED CELL COUNT 5.12 10/6/uL (4.0-5.6); WHITE BLOOD CELLS 11.5 10/3/uL (4.5-10.5)
[2017-02-28 06:05] LABS: MANUAL DIFF YES %
[2017-02-28 07:11] LABS: BAND NEUTROPHILS 20 %; LYMPHOCYTES 7 %; LYMPHOCYTES ABSOLUTE (CALC) 0.81 10/3/uL (0.67-4.30); MONOCYTES 4 %; MONOCYTES ABSOLUTE (CALC) 0.46 10/3/uL (0.21-1.20); NEUTROPHILS ABSOLUTE (CALC) 10.24 10/3/uL (2.02-8.40); PLATELET ESTIMATE SLT DEC (ADEQUATE); SEGMENTED NEUTROPHIL (0) 69 %; TOTAL NUCLEATED CELLS 100
[2017-02-28 07:12] LABS: RBC MORPHOLOGY NORM (NORMAL)
[2017-02-28 13:34] LABS: CALCIUM, SERUM 8.5 MG/DL (8.5-10.4); CHLORIDE, SERUM 111 MMOL/L (96-112); CO2 (CARBON DIOXIDE) 25 MMOL/L (24-34); CREATININE 1.44 MG/DL (0.55-1.02); GFR AFRICAN AMERICAN 38 ML/MIN (>=60); GFR NON AFRICAN AMERICAN 33 ML/MIN (>=60); GLUCOSE, SERUM 150 MG/DL (60-99); POTASSIUM, SERUM 4.1 MMOL/L (3.5-5.3); SODIUM, SERUM 145 MMOL/L (135-148)
[2017-02-28 13:36] LABS: BUN (BLOOD UREA NITROGEN) 42 MG/DL (6-23)
[2017-03-01 07:21] LABS: BASOPHILS 0.2 %; BASOPHILS ABSOLUTE 0.03 10/3/uL (0.0-0.16); EOSINOPHILS 0 %; HEMOGLOBIN 12.4 g/dL (12.0-16.0); IMMATURE GRANULOCYTES ABSOLUTE 0.13 10/3/uL (0.0-0.11); LYMPHOCYTES 7.7 %; LYMPHOCYTES ABSOLUTE 0.99 10/3/uL (0.67-4.30); MEAN CORPUS HGB CONC 33.9 g/dL (32.0-36.0); MEAN CORPUSCULAR HEMOGLOB 27.8 pg (26.0-34.0); MEAN PLATELET VOLUME 11.5 fL (9.2-13.0); NEUTROPHILS 84.1 %; NEUTROPHILS ABSOLUTE 10.75 10/3/uL (2.02-8.40); PLATELET COUNT 97 10/3/uL (150-400); RBC DISTRIBUTION WIDTH 15.4 % (12.0-16.0); RED CELL COUNT 4.46 10/6/uL (4.0-5.6); WHITE BLOOD CELLS 12.8 10/3/uL (4.5-10.5)
[2017-03-01 07:24] LABS: HEMATOCRIT 36.6 % (36.0-48.0); MANUAL DIFF NO %; MEAN CORPUSCULAR VOLUME 82.1 fL (80-100)
[2017-03-01 07:29] LABS: INTERNATIONAL NORMAL RATI 1.5 UNITS (-); PROTIME (NOT ORD) 17.9 SEC (12.0-14.5)
[2017-03-01 07:33] LABS: BUN (BLOOD UREA NITROGEN) 39 MG/DL (6-23); CALCIUM, SERUM 8.5 MG/DL (8.5-10.4); CHLORIDE, SERUM 109 MMOL/L (96-112); CO2 (CARBON DIOXIDE) 27 MMOL/L (24-34); CREATININE 1.07 MG/DL (0.55-1.02); GFR AFRICAN AMERICAN 54 ML/MIN (>=60); GFR NON AFRICAN AMERICAN 47 ML/MIN (>=60); SODIUM, SERUM 143 MMOL/L (135-148)
[2017-03-01 07:34] LABS: GLUCOSE, SERUM 117 MG/DL (60-99)
[2017-03-01 07:55] LABS: PLATELET ESTIMATE DEC (ADEQUATE); RBC MORPHOLOGY NORM (NORMAL)
[2017-03-02 05:39] LABS: INTERNATIONAL NORMAL RATI 1.3 UNITS (-); PROTIME (NOT ORD) 16.1 SEC (12.0-14.5)
[2017-03-02 05:49] LABS: ALKALINE PHOSPHATASE 76 U/L (45-117); CALCIUM, SERUM 8.3 MG/DL (8.5-10.4); CHLORIDE, SERUM 108 MMOL/L (96-112); CO2 (CARBON DIOXIDE) 27 MMOL/L (24-34); GFR AFRICAN AMERICAN 67 ML/MIN (>=60); GFR NON AFRICAN AMERICAN 57 ML/MIN (>=60); GLUCOSE, SERUM 103 MG/DL (60-99); POTASSIUM, SERUM 4.1 MMOL/L (3.5-5.3); SGOT(AST) 72 U/L (5-40); SGPT(ALT) 43 U/L (5-65); SODIUM, SERUM 141 MMOL/L (135-148)
[2017-03-02 05:51] LABS: A/G RATIO 0.4 (0.7-1.9); ALBUMIN 1.6 G/DL (3.5-5.0); BUN (BLOOD UREA NITROGEN) 28 MG/DL (6-23); GLOBULIN 3.9 G/DL (2.5-4.1); HEMATOCRIT 36.2 % (36.0-48.0); HEMOGLOBIN 12.3 g/dL (12.0-16.0); MANUAL DIFF YES %; MEAN CORPUSCULAR HEMOGLOB 28.1 pg (26.0-34.0); MEAN CORPUSCULAR VOLUME 82.6 fL (80-100); MEAN PLATELET VOLUME 12.2 fL (9.2-13.0); PLATELET COUNT 91 10/3/uL (150-400); RBC DISTRIBUTION WIDTH 15.2 % (12.0-16.0); RED CELL COUNT 4.38 10/6/uL (4.0-5.6); TOTAL BILIRUBIN 1.1 MG/DL (0-1.2); TOTAL PROTEIN 5.5 G/DL (6.0-8.5); WHITE BLOOD CELLS 15.5 10/3/uL (4.5-10.5)
[2017-03-02 06:13] LABS: BAND NEUTROPHILS 7 %; IMMATURE GRANS ABSOLUTE (CALC) 0.31 10/3/uL (0.0-0.11); LYMPHOCYTES 5 %; LYMPHOCYTES ABSOLUTE (CALC) 0.78 10/3/uL (0.67-4.30); METAMYELOCYTES 2 %; MONOCYTES 6 %; MONOCYTES ABSOLUTE (CALC) 0.93 10/3/uL (0.21-1.20); NEUTROPHILS ABSOLUTE (CALC) 13.49 10/3/uL (2.02-8.40); PLATELET ESTIMATE SLT DEC (ADEQUATE); RBC MORPHOLOGY NORM (NORMAL); SEGMENTED NEUTROPHIL (0) 80 %; TOTAL NUCLEATED CELLS 100
[2017-03-03 07:29] LABS: HEMATOCRIT 34.8 % (36.0-48.0); HEMOGLOBIN 11.9 g/dL (12.0-16.0); MEAN CORPUS HGB CONC 34.2 g/dL (32.0-36.0); MEAN CORPUSCULAR HEMOGLOB 28.1 pg (26.0-34.0); MEAN CORPUSCULAR VOLUME 82.1 fL (80-100); MEAN PLATELET VOLUME 11.8 fL (9.2-13.0); RBC DISTRIBUTION WIDTH 15.1 % (12.0-16.0); RED CELL COUNT 4.24 10/6/uL (4.0-5.6); WHITE BLOOD CELLS 18.4 10/3/uL (4.5-10.5)
[2017-03-03 07:31] LABS: MANUAL DIFF YES %; PLATELET COUNT 131 10/3/uL (150-400)
[2017-03-03 07:41] LABS: INTERNATIONAL NORMAL RATI 1.5 UNITS (-); PROTIME (NOT ORD) 18.4 SEC (12.0-14.5)
[2017-03-03 07:51] LABS: CALCIUM, SERUM 8.1 MG/DL (8.5-10.4); CHLORIDE, SERUM 110 MMOL/L (96-112); CO2 (CARBON DIOXIDE) 27 MMOL/L (24-34); CREATININE 0.79 MG/DL (0.55-1.02); GFR AFRICAN AMERICAN 78 ML/MIN (>=60); GFR NON AFRICAN AMERICAN 67 ML/MIN (>=60); GLUCOSE, SERUM 94 MG/DL (60-99); POTASSIUM, SERUM 4.1 MMOL/L (3.5-5.3); SODIUM, SERUM 142 MMOL/L (135-148)
[2017-03-03 07:52] LABS: BUN (BLOOD UREA NITROGEN) 24 MG/DL (6-23)
[2017-03-03 07:55] LABS: BAND NEUTROPHILS 18 %; IMMATURE GRANS ABSOLUTE (CALC) 1.29 10/3/uL (0.0-0.11); LYMPHOCYTES 8 %; LYMPHOCYTES ABSOLUTE (CALC) 1.47 10/3/uL (0.67-4.30); METAMYELOCYTES 6 %; MONOCYTES 7 %; MONOCYTES ABSOLUTE (CALC) 1.29 10/3/uL (0.21-1.20); MYELOCYTES 1 %; NEUTROPHILS ABSOLUTE (CALC) 14.35 10/3/uL (2.02-8.40); PLATELET ESTIMATE SLT DEC (ADEQUATE); RBC MORPHOLOGY NORM (NORMAL); SEGMENTED NEUTROPHIL (0) 60 %; TOTAL NUCLEATED CELLS 100
[2017-03-04 06:19] LABS: HEMATOCRIT 34.8 % (36.0-48.0); HEMOGLOBIN 11.8 g/dL (12.0-16.0); MEAN CORPUS HGB CONC 33.9 g/dL (32.0-36.0); MEAN CORPUSCULAR VOLUME 82.7 fL (80-100); MEAN PLATELET VOLUME 11.9 fL (9.2-13.0); PLATELET COUNT 149 10/3/uL (150-400); RBC DISTRIBUTION WIDTH 15.2 % (12.0-16.0); RED CELL COUNT 4.21 10/6/uL (4.0-5.6)
[2017-03-04 06:21] LABS: MANUAL DIFF YES %
[2017-03-04 06:22] LABS: INTERNATIONAL NORMAL RATI 1.8 UNITS (-); PROTIME (NOT ORD) 20.3 SEC (12.0-14.5)
[2017-03-04 06:31] LABS: BUN (BLOOD UREA NITROGEN) 27 MG/DL (6-23); CALCIUM, SERUM 8.6 MG/DL (8.5-10.4); CHLORIDE, SERUM 108 MMOL/L (96-112); CO2 (CARBON DIOXIDE) 24 MMOL/L (24-34); CREATININE 0.86 MG/DL (0.55-1.02); GFR AFRICAN AMERICAN 70 ML/MIN (>=60); GFR NON AFRICAN AMERICAN 61 ML/MIN (>=60); GLUCOSE, SERUM 97 MG/DL (60-99); SODIUM, SERUM 139 MMOL/L (135-148)
[2017-03-04 06:44] LABS: BAND NEUTROPHILS 6 %; LYMPHOCYTES 4 %; METAMYELOCYTES 8 %; MONOCYTES 3 %; SEGMENTED NEUTROPHIL (0) 79 %; TOTAL NUCLEATED CELLS 100
[2017-03-04 06:45] LABS: BURR CELLS 1+ (3-10/OIF) (0-2/OIF); PLATELET ESTIMATE ADQ (ADEQUATE)
[2017-03-04 10:28] LABS: PROCALCITONIN 1.46 ng/mL (<0.5)
[2017-03-04 16:15] LABS: ASCORBIC ACID (UR NOT ORDER) NEG (NEG); BILIRUBIN, URINE NEGATIVE (NEG); KETONE, URINE NEGATIVE (NEG); LEUKOCYTE ESTERASE(NOT OR MOD (NEG); WBC (NOT ORDERED) (RFLEX) 147 (0-5)
[2017-03-05 06:36] LABS: HEMATOCRIT 31.6 % (36.0-48.0); HEMOGLOBIN 10.7 g/dL (12.0-16.0); MANUAL DIFF YES %; MEAN CORPUS HGB CONC 33.9 g/dL (32.0-36.0); MEAN CORPUSCULAR HEMOGLOB 28.2 pg (26.0-34.0); MEAN CORPUSCULAR VOLUME 83.2 fL (80-100); MEAN PLATELET VOLUME 11.8 fL (9.2-13.0); PLATELET COUNT 185 10/3/uL (150-400); RBC DISTRIBUTION WIDTH 15.2 % (12.0-16.0); WHITE BLOOD CELLS 18.2 10/3/uL (4.5-10.5)
[2017-03-05 06:40] LABS: INTERNATIONAL NORMAL RATI 2.5 UNITS (-); PROTIME (NOT ORD) 26.5 SEC (12.0-14.5)
[2017-03-05 06:48] LABS: BUN (BLOOD UREA NITROGEN) 24 MG/DL (6-23); CHLORIDE, SERUM 108 MMOL/L (96-112); CO2 (CARBON DIOXIDE) 25 MMOL/L (24-34); CREATININE 0.87 MG/DL (0.55-1.02); GFR AFRICAN AMERICAN 69 ML/MIN (>=60); GFR NON AFRICAN AMERICAN 60 ML/MIN (>=60); GLUCOSE, SERUM 109 MG/DL (60-99); POTASSIUM, SERUM 3.8 MMOL/L (3.5-5.3); SODIUM, SERUM 140 MMOL/L (135-148)
[2017-03-05 07:01] LABS: LYMPHOCYTES 9 %; LYMPHOCYTES ABSOLUTE (CALC) 1.64 10/3/uL (0.67-4.30); MONOCYTES 6 %; MONOCYTES ABSOLUTE (CALC) 1.09 10/3/uL (0.21-1.20); NEUTROPHILS ABSOLUTE (CALC) 15.47 10/3/uL (2.02-8.40); PLATELET ESTIMATE ADQ (ADEQUATE); RBC MORPHOLOGY NORM (NORMAL); SEGMENTED NEUTROPHIL (0) 85 %; TOTAL NUCLEATED CELLS 100
[2017-03-06 06:32] LABS: HEMATOCRIT 30.9 % (36.0-48.0); HEMOGLOBIN 10.3 g/dL (12.0-16.0); MEAN CORPUS HGB CONC 33.3 g/dL (32.0-36.0); MEAN CORPUSCULAR HEMOGLOB 27.7 pg (26.0-34.0); MEAN CORPUSCULAR VOLUME 83.1 fL (80-100); MEAN PLATELET VOLUME 11.1 fL (9.2-13.0); RBC DISTRIBUTION WIDTH 15.1 % (12.0-16.0); RED CELL COUNT 3.72 10/6/uL (4.0-5.6); WHITE BLOOD CELLS 23.2 10/3/uL (4.5-10.5)
[2017-03-06 06:37] LABS: MANUAL DIFF YES %; PLATELET COUNT 243 10/3/uL (150-400)
[2017-03-06 06:38] LABS: INTERNATIONAL NORMAL RATI 2.5 UNITS (-); PROTIME (NOT ORD) 26.4 SEC (12.0-14.5)
[2017-03-06 06:45] LABS: BUN (BLOOD UREA NITROGEN) 21 MG/DL (6-23); CALCIUM, SERUM 8.1 MG/DL (8.5-10.4); CHLORIDE, SERUM 108 MMOL/L (96-112); CO2 (CARBON DIOXIDE) 26 MMOL/L (24-34); CREATININE 0.86 MG/DL (0.55-1.02); GFR AFRICAN AMERICAN 70 ML/MIN (>=60); GFR NON AFRICAN AMERICAN 61 ML/MIN (>=60); GLUCOSE, SERUM 92 MG/DL (60-99); POTASSIUM, SERUM 3.9 MMOL/L (3.5-5.3); SODIUM, SERUM 140 MMOL/L (135-148)
[2017-03-06 07:09] LABS: BAND NEUTROPHILS 16 %; IMMATURE GRANS ABSOLUTE (CALC) 0.46 10/3/uL (0.0-0.11); LYMPHOCYTES 9 %; LYMPHOCYTES ABSOLUTE (CALC) 2.09 10/3/uL (0.67-4.30); METAMYELOCYTES 1 %; MONOCYTES 2 %; MONOCYTES ABSOLUTE (CALC) 0.46 10/3/uL (0.21-1.20); MYELOCYTES 1 %; NEUTROPHILS ABSOLUTE (CALC) 20.18 10/3/uL (2.02-8.40); PLATELET ESTIMATE ADQ (ADEQUATE); POLYCHROMASIA 1+ (2-5/OIF) (0-1/OIF); SEGMENTED NEUTROPHIL (0) 71 %; TOTAL NUCLEATED CELLS 100
[2017-03-06 07:10] LABS: GIANT PLATELET RARE; TOXIC GRANULATION 1+; VACUOLATED NEUTROPHILES 1+
[2017-03-07 06:34] LABS: HEMATOCRIT 30.9 % (36.0-48.0); HEMOGLOBIN 10.3 g/dL (12.0-16.0); MEAN CORPUS HGB CONC 33.3 g/dL (32.0-36.0); MEAN CORPUSCULAR HEMOGLOB 27.8 pg (26.0-34.0); MEAN CORPUSCULAR VOLUME 83.3 fL (80-100); MEAN PLATELET VOLUME 11.1 fL (9.2-13.0); PLATELET COUNT 280 10/3/uL (150-400); RBC DISTRIBUTION WIDTH 15.1 % (12.0-16.0); RED CELL COUNT 3.71 10/6/uL (4.0-5.6)
[2017-03-07 06:35] LABS: MANUAL DIFF YES %
[2017-03-07 06:39] LABS: INTERNATIONAL NORMAL RATI 2.4 UNITS (-); PROTIME (NOT ORD) 25.9 SEC (12.0-14.5)
[2017-03-07 06:44] LABS: CALCIUM, SERUM 7.9 MG/DL (8.5-10.4); CHLORIDE, SERUM 109 MMOL/L (96-112); CO2 (CARBON DIOXIDE) 27 MMOL/L (24-34); CREATININE 0.78 MG/DL (0.55-1.02); GFR AFRICAN AMERICAN 79 ML/MIN (>=60); GFR NON AFRICAN AMERICAN 68 ML/MIN (>=60); GLUCOSE, SERUM 86 MG/DL (60-99); POTASSIUM, SERUM 4.2 MMOL/L (3.5-5.3); SODIUM, SERUM 142 MMOL/L (135-148)
[2017-03-07 06:46] LABS: BUN (BLOOD UREA NITROGEN) 16 MG/DL (6-23)
[2017-03-07 07:09] LABS: BAND NEUTROPHILS 11 %; IMMATURE GRANS ABSOLUTE (CALC) 0.88 10/3/uL (0.0-0.11); LYMPHOCYTES 5 %; METAMYELOCYTES 4 %; MONOCYTES 1 %; MONOCYTES ABSOLUTE (CALC) 0.22 10/3/uL (0.21-1.20); PLATELET ESTIMATE ADQ (ADEQUATE); SEGMENTED NEUTROPHIL (0) 79 %; TOTAL NUCLEATED CELLS 100
[2017-03-07 07:10] LABS: POLYCHROMASIA 1+ (2-5/OIF) (0-1/OIF)
[2017-03-08 07:10] LABS: HEMATOCRIT 29.8 % (36.0-48.0); HEMOGLOBIN 9.9 g/dL (12.0-16.0); MEAN CORPUS HGB CONC 33.2 g/dL (32.0-36.0); MEAN CORPUSCULAR VOLUME 84.2 fL (80-100); PLATELET COUNT 305 10/3/uL (150-400); RBC DISTRIBUTION WIDTH 15.3 % (12.0-16.0); RED CELL COUNT 3.54 10/6/uL (4.0-5.6); WHITE BLOOD CELLS 17.8 10/3/uL (4.5-10.5)
[2017-03-08 07:12] LABS: MANUAL DIFF YES %
[2017-03-08 07:14] LABS: INTERNATIONAL NORMAL RATI 2.7 UNITS (-); PROTIME (NOT ORD) 28.8 SEC (12.0-14.5)
[2017-03-08 07:15] LABS: PARTIAL THROMBO TIME 56.4 SEC (22.5-37.2)
[2017-03-08 07:24] LABS: BUN (BLOOD UREA NITROGEN) 14 MG/DL (6-23); CHLORIDE, SERUM 110 MMOL/L (96-112); CO2 (CARBON DIOXIDE) 26 MMOL/L (24-34); CREATININE 0.73 MG/DL (0.55-1.02); GFR AFRICAN AMERICAN 86 ML/MIN (>=60); GFR NON AFRICAN AMERICAN 74 ML/MIN (>=60); GLUCOSE, SERUM 97 MG/DL (60-99); SODIUM, SERUM 143 MMOL/L (135-148)
[2017-03-08 07:30] LABS: BAND NEUTROPHILS 12 %; EOSINOPHILS 2 %; EOSINOPHILS ABSOLUTE (CALC) 0.36 10/3/uL (0.0-0.53); IMMATURE GRANS ABSOLUTE (CALC) 0.36 10/3/uL (0.0-0.11); LYMPHOCYTES 4 %; LYMPHOCYTES ABSOLUTE (CALC) 0.71 10/3/uL (0.67-4.30); METAMYELOCYTES 2 %; MONOCYTES 4 %; MONOCYTES ABSOLUTE (CALC) 0.71 10/3/uL (0.21-1.20); NEUTROPHILS ABSOLUTE (CALC) 15.66 10/3/uL (2.02-8.40); PLATELET ESTIMATE ADQ (ADEQUATE); SEGMENTED NEUTROPHIL (0) 76 %; TOTAL NUCLEATED CELLS 100
[2017-03-08 07:32] LABS: POLYCHROMASIA 1+ (2-5/OIF) (0-1/OIF); TOXIC GRANULATION SLT
[2017-03-09 06:19] LABS: HEMOGLOBIN 10.7 g/dL (12.0-16.0); MEAN CORPUS HGB CONC 33.4 g/dL (32.0-36.0); MEAN CORPUSCULAR HEMOGLOB 28.5 pg (26.0-34.0); MEAN CORPUSCULAR VOLUME 85.1 fL (80-100); MEAN PLATELET VOLUME 10.8 fL (9.2-13.0); PLATELET COUNT 327 10/3/uL (150-400); RBC DISTRIBUTION WIDTH 15.6 % (12.0-16.0); RED CELL COUNT 3.76 10/6/uL (4.0-5.6); WHITE BLOOD CELLS 16.9 10/3/uL (4.5-10.5)
[2017-03-09 06:22] LABS: MANUAL DIFF YES %
[2017-03-09 06:27] LABS: INTERNATIONAL NORMAL RATI 1.4 UNITS (-); PARTIAL THROMBO TIME 32.4 SEC (22.5-37.2)
[2017-03-09 06:31] LABS: BUN (BLOOD UREA NITROGEN) 15 MG/DL (6-23); CALCIUM, SERUM 8.2 MG/DL (8.5-10.4); CHLORIDE, SERUM 108 MMOL/L (96-112); CO2 (CARBON DIOXIDE) 25 MMOL/L (24-34); CREATININE 0.81 MG/DL (0.55-1.02); GFR AFRICAN AMERICAN 76 ML/MIN (>=60); GFR NON AFRICAN AMERICAN 65 ML/MIN (>=60); GLUCOSE, SERUM 98 MG/DL (60-99); POTASSIUM, SERUM 4.4 MMOL/L (3.5-5.3); SODIUM, SERUM 139 MMOL/L (135-148)
[2017-03-09 06:32] LABS: PROTIME (NOT ORD) 16.9 SEC (12.0-14.5)
[2017-03-09 07:42] LABS: BAND NEUTROPHILS 14 %; IMMATURE GRANS ABSOLUTE (CALC) 0.85 10/3/uL (0.0-0.11); LYMPHOCYTES 6 %; LYMPHOCYTES ABSOLUTE (CALC) 1.01 10/3/uL (0.67-4.30); METAMYELOCYTES 4 %; MONOCYTES 4 %; MONOCYTES ABSOLUTE (CALC) 0.68 10/3/uL (0.21-1.20); MYELOCYTES 1 %; NEUTROPHILS ABSOLUTE (CALC) 14.37 10/3/uL (2.02-8.40); PLATELET ESTIMATE ADQ (ADEQUATE); RBC MORPHOLOGY NORM (NORMAL); SEGMENTED NEUTROPHIL (0) 71 %; TOTAL NUCLEATED CELLS 100
[2017-03-10 05:12] LABS: HEMATOCRIT 29.4 % (36.0-48.0); HEMOGLOBIN 9.8 g/dL (12.0-16.0); MEAN CORPUS HGB CONC 33.3 g/dL (32.0-36.0); MEAN CORPUSCULAR HEMOGLOB 28.1 pg (26.0-34.0); MEAN CORPUSCULAR VOLUME 84.2 fL (80-100); MEAN PLATELET VOLUME 10.4 fL (9.2-13.0); PLATELET COUNT 320 10/3/uL (150-400); RBC DISTRIBUTION WIDTH 15.8 % (12.0-16.0); RED CELL COUNT 3.49 10/6/uL (4.0-5.6); WHITE BLOOD CELLS 13.2 10/3/uL (4.5-10.5)
[2017-03-10 05:15] LABS: MANUAL DIFF YES %
[2017-03-10 05:16] LABS: INTERNATIONAL NORMAL RATI 1.2 UNITS (-); PROTIME (NOT ORD) 15.1 SEC (12.0-14.5)
[2017-03-10 05:21] LABS: BUN (BLOOD UREA NITROGEN) 13 MG/DL (6-23); CHLORIDE, SERUM 111 MMOL/L (96-112); CO2 (CARBON DIOXIDE) 26 MMOL/L (24-34); CREATININE 0.69 MG/DL (0.55-1.02); GFR AFRICAN AMERICAN 91 ML/MIN (>=60); GFR NON AFRICAN AMERICAN 78 ML/MIN (>=60); GLUCOSE, SERUM 104 MG/DL (60-99); POTASSIUM, SERUM 4.1 MMOL/L (3.5-5.3); SODIUM, SERUM 142 MMOL/L (135-148)
[2017-03-10 07:23] LABS: BAND NEUTROPHILS 4 %; EOSINOPHILS 2 %; EOSINOPHILS ABSOLUTE (CALC) 0.26 10/3/uL (0.0-0.53); LYMPHOCYTES 13 %; LYMPHOCYTES ABSOLUTE (CALC) 1.98 10/3/uL (0.67-4.30); METAMYELOCYTES 4 %; MYELOCYTES 1 %; NEUTROPHILS ABSOLUTE (CALC) 10.56 10/3/uL (2.02-8.40); SEGMENTED NEUTROPHIL (0) 76 %; TOTAL NUCLEATED CELLS 100
[2017-03-10 07:24] LABS: PLATELET ESTIMATE ADQ (ADEQUATE); RBC MORPHOLOGY NORM (NORMAL)
[2017-03-11 07:11] LABS: INTERNATIONAL NORMAL RATI 1.2 UNITS (-); PROTIME (NOT ORD) 15.3 SEC (12.0-14.5)
[2017-03-11 07:13] LABS: BASOPHILS 0.2 %; BASOPHILS ABSOLUTE 0.02 10/3/uL (0.0-0.16); EOSINOPHILS 1.2 %; EOSINOPHILS ABSOLUTE 0.13 10/3/uL (0.0-0.53); HEMATOCRIT 29.1 % (36.0-48.0); HEMOGLOBIN 9.4 g/dL (12.0-16.0); IMMATURE GRANULOCYTES 3.9 %; IMMATURE GRANULOCYTES ABSOLUTE 0.42 10/3/uL (0.0-0.11); LYMPHOCYTES 11.6 %; LYMPHOCYTES ABSOLUTE 1.24 10/3/uL (0.67-4.30); MEAN CORPUS HGB CONC 32.3 g/dL (32.0-36.0); MEAN CORPUSCULAR HEMOGLOB 27.8 pg (26.0-34.0); MEAN CORPUSCULAR VOLUME 86.1 fL (80-100); MEAN PLATELET VOLUME 10.2 fL (9.2-13.0); MONOCYTES 5.8 %; MONOCYTES ABSOLUTE 0.62 10/3/uL (0.21-1.20); NEUTROPHILS 77.3 %; NEUTROPHILS ABSOLUTE 8.28 10/3/uL (2.02-8.40); PLATELET COUNT 335 10/3/uL (150-400); RBC DISTRIBUTION WIDTH 15.9 % (12.0-16.0); RED CELL COUNT 3.38 10/6/uL (4.0-5.6); WHITE BLOOD CELLS 10.7 10/3/uL (4.5-10.5)
[2017-03-11 07:14] LABS: BUN (BLOOD UREA NITROGEN) 12 MG/DL (6-23); CHLORIDE, SERUM 111 MMOL/L (96-112); CO2 (CARBON DIOXIDE) 26 MMOL/L (24-34); CREATININE 0.67 MG/DL (0.55-1.02); GFR AFRICAN AMERICAN 92 ML/MIN (>=60); GFR NON AFRICAN AMERICAN 79 ML/MIN (>=60); GLUCOSE, SERUM 86 MG/DL (60-99); MANUAL DIFF NO %; POTASSIUM, SERUM 3.8 MMOL/L (3.5-5.3); SODIUM, SERUM 141 MMOL/L (135-148)
[2017-03-12 05:16] LABS: BASOPHILS 0.2 %; BASOPHILS ABSOLUTE 0.02 10/3/uL (0.0-0.16); EOSINOPHILS 1.4 %; EOSINOPHILS ABSOLUTE 0.16 10/3/uL (0.0-0.53); HEMATOCRIT 27.7 % (36.0-48.0); HEMOGLOBIN 9.2 g/dL (12.0-16.0); IMMATURE GRANULOCYTES 2.1 %; IMMATURE GRANULOCYTES ABSOLUTE 0.24 10/3/uL (0.0-0.11); LYMPHOCYTES 9.3 %; LYMPHOCYTES ABSOLUTE 1.07 10/3/uL (0.67-4.30); MEAN CORPUS HGB CONC 33.2 g/dL (32.0-36.0); MEAN CORPUSCULAR HEMOGLOB 28.7 pg (26.0-34.0); MEAN CORPUSCULAR VOLUME 86.3 fL (80-100); MEAN PLATELET VOLUME 10.7 fL (9.2-13.0); MONOCYTES 6.9 %; MONOCYTES ABSOLUTE 0.79 10/3/uL (0.21-1.20); NEUTROPHILS 80.1 %; NEUTROPHILS ABSOLUTE 9.19 10/3/uL (2.02-8.40); PLATELET COUNT 356 10/3/uL (150-400); RBC DISTRIBUTION WIDTH 16.2 % (12.0-16.0); RED CELL COUNT 3.21 10/6/uL (4.0-5.6); WHITE BLOOD CELLS 11.5 10/3/uL (4.5-10.5)
[2017-03-12 05:17] LABS: MANUAL DIFF NO %
[2017-03-12 05:19] LABS: INTERNATIONAL NORMAL RATI 1.3 UNITS (-); PROTIME (NOT ORD) 15.6 SEC (12.0-14.5)
[2017-03-12 05:29] LABS: BUN (BLOOD UREA NITROGEN) 12 MG/DL (6-23); CALCIUM, SERUM 8.2 MG/DL (8.5-10.4); CHLORIDE, SERUM 106 MMOL/L (96-112); CO2 (CARBON DIOXIDE) 25 MMOL/L (24-34); CREATININE 0.67 MG/DL (0.55-1.02); GFR AFRICAN AMERICAN 92 ML/MIN (>=60); GFR NON AFRICAN AMERICAN 79 ML/MIN (>=60); GLUCOSE, SERUM 91 MG/DL (60-99); POTASSIUM, SERUM 3.7 MMOL/L (3.5-5.3); SODIUM, SERUM 138 MMOL/L (135-148)
[2017-03-12 06:05] LABS: PROCALCITONIN 0.12 ng/mL (<0.5)
[2017-03-25] MEDS ORDERED: CORDARONE PO (19:54)
[2017-03-25] MEDS ORDERED: ARMOUR THYRO30 MG PO (19:55)
[2017-03-25] MEDS ORDERED: FLONASE NAS (19:55)
[2017-03-25] MEDS ORDERED: NYS500UDL PO (19:56)
[2017-03-25] MEDS ORDERED: CYANO1000T PO (19:56)
[2017-03-25] MEDS ORDERED: SINGULAIR1 PO (19:56)
[2017-03-25] MEDS ORDERED: PRAVAC PO (19:56)
[2017-03-25] MEDS ORDERED: MAGOX4 PO (19:57)
[2017-03-25] MEDS ORDERED: VITAMIN D1000 UNI1 PO (19:57)
[2017-03-25] MEDS ORDERED: PROMEGA PO (19:57)
[2017-03-25] MEDS ORDERED: CRANBERY450 MG PO (19:57)
[2017-03-25] MEDS ORDERED: T PO (19:58)
[2017-03-25] MEDS ORDERED: DUONEB INH (19:58)
[2017-03-25] MEDS ORDERED: D.O.S.100 MG PO (19:59)
[2017-03-25] MEDS ORDERED: ACETSUP650 PR (19:59)
[2017-03-25] MEDS ORDERED: BISR PR (19:59)
[2017-03-25] MEDS ORDERED: ZOFRAN ODT4 MG PO (20:00)
[2017-03-25] MEDS ORDERED: ASAB PO (20:00)
[2017-03-25] MEDS ORDERED: SENTAB PO (20:00)
[2017-03-25] MEDS ORDERED: NORCO1 TA1 PO (20:01)
[2017-03-25] MEDS ORDERED: VOLTAREN1 % TOP (20:01)
[2017-03-25] MEDS ORDERED: C2 PO (20:02)
[2017-03-25] MEDS ORDERED: CEFT2 PO (20:02)
[2017-03-25] MEDS ORDERED: PROTONIX PO (20:06)
[2017-05-25] MEDS ORDERED: COUMADIN3 MG PO (22:40)
[2017-05-25] MEDS ORDERED: C25 PO (22:41)
[2017-05-25] MEDS ORDERED: FLORASTOR250 MG PO (22:42)
[2017-05-25] MEDS ORDERED: THYROID 30 MG PO (22:43)
[2017-05-25] MEDS ORDERED: PRILO PO (22:43)
[2017-05-25] MEDS ORDERED: MARI2.5 PO (22:44)
[2017-05-25] MEDS ORDERED: VITAMIN B-121000 MC1 PO (22:45)
[2017-05-25] MEDS ORDERED: SODBICAR10 PO (22:45)
[2017-05-25] MEDS ORDERED: LOP25 PO (22:45)
[2017-05-25] MEDS ORDERED: VITAMIN D31000 UNIT PO (22:46)
[2017-05-25] MEDS ORDERED: MAGOX4 PO (22:46)
[2017-05-25] MEDS ORDERED: CRANBERY450 MG PO (22:46)
[2017-05-25] MEDS ORDERED: ASAB PO (22:47)
[2017-05-25] MEDS ORDERED: SINGULAIR1 PO (22:47)
[2017-05-25] MEDS ORDERED: SENTAB PO (22:47)
[2017-05-25] MEDS ORDERED: FLONASE NAS (22:48)
[2017-05-25] MEDS ORDERED: CELEXA10 PO (22:48)
[2017-05-25] MEDS ORDERED: DUONEB INH (22:49)
[2017-05-25] MEDS ORDERED: T PO (22:49)
[2017-05-25] MEDS ORDERED: HYDROCORTISONE30 G1 TOP (22:53)
[2017-05-25] MEDS ORDERED: VOLTAREN1 % TOP (22:53)
== END 2017-03-12 16:02 | DRG 668 ==
LOC: ER 05:14 → 2SO 07:33
PROVIDERS: Emergency Medicine; Hospitalist; Internal Medicine; Student in an Organized Health Care Education/Training Program; Urology
PROC: 0T768DZ Dilation of Right Ureter with Intraluminal Device, Via Natural or Artificial Opening Endoscopic (ICD-10-PCS; 2017-02-28)
PROC: BT1D1ZZ Fluoroscopy of Right Kidney, Ureter and Bladder using Low Osmolar Contrast (ICD-10-PCS; principal; 2017-02-28 07:45)
PROC: 0TC68ZZ Extirpation of Matter from Right Ureter, Via Natural or Artificial Opening Endoscopic (ICD-10-PCS; 2017-03-09)
DX: N13.6 Pyonephrosis (principal); K68.19 Other retroperitoneal abscess; I50.22 Chronic systolic (congestive) heart failure; I49.5 Sick sinus syndrome; I82.5Z9 Chronic embolism and thrombosis of unspecified deep veins of unspecified distal lower extremity; I97.89 Other postprocedural complications and disorders of the circulatory system, not elsewhere classified; N20.1 Calculus of ureter; N11.1 Chronic obstructive pyelonephritis; I48.0 Paroxysmal atrial fibrillation; R00.1 Bradycardia, unspecified; I70.1 Atherosclerosis of renal artery; M19.90 Unspecified osteoarthritis, unspecified site; I25.5 Ischemic cardiomyopathy; I25.10 Atherosclerotic heart disease of native coronary artery without angina pectoris; K21.9 Gastro-esophageal reflux disease without esophagitis; E03.9 Hypothyroidism, unspecified; G89.29 Other chronic pain; M54.5 Low back pain; K44.9 Diaphragmatic hernia without obstruction or gangrene; F41.9 Anxiety disorder, unspecified; I25.2 Old myocardial infarction; Z95.0 Presence of cardiac pacemaker; Z87.11 Personal history of peptic ulcer disease; Z95.5 Presence of coronary angioplasty implant and graft
CPT/HCPCS: 10030; 49418; 70450; 71010; 74000; 74176; 74178; 74420; 80048; 80053; 81001; 82570; 82962; 83690; 83735; 83880; 84145; 84439; 84443; 84484; 85025; 85610; 85730; 87040; 87070; 87075; 87077; 87086; 87186; 87205; 93005; 93306; 94640; 96374; 97110-GO; 97110-GP; 97116-GP; 97162-GP; 97165-GO; 97530-GO; 97530-GP; 97535-GO; 99291; A9270-GY; C1758; C1769; C1894; C2617; G8978-CM-GP; G8979-CK-GP; G8987-CK-GO; G8988-CJ-GO; J0282; J0330; J1170; J1940; J1956; J2250; J2370; J2405; J2710; J3010; J3473; Q9967